=== PATIENT | female | born 1975 | race Caucasian/White ===

== ENCOUNTER → 2017-04-14 | Outpatient (CLI) | payer BC ==
[~2017-04-14] MED LIST: BUPR-79 PO; MTR600X PO; NIFE30TA83 PO; OXYC5TAB PO; SOLI10TA2 PO
[2017-04-20 14:36] LABS: HERPES SIMPLEX CULT SOURCE GENITAL-VULVA; HERPES SIMPLEX VIRUS CULT ISOLATED (NOT ISOLATED)
[2017-04-23 13:46] LABS: HSVTYPE1REFLEX ONLY!DON'T ORDR ISOLATED (NOT ISOLATED); HSVTYPE2REFLEX ONLY!DON'T ORDR NOT ISOLATED (NOT ISOLATED)
== END | disposition home or self-care (01) ==
LOC: C.LABSPEC 17:41
PROVIDERS: ATTEND Physician Assistant
DX: N94.9 Unspecified condition associated with female genital organs and menstrual cycle (principal)

== ENCOUNTER → 2017-12-02 | Outpatient (CLI) | payer BC ==
[2017-12-02 14:16] LABS: BLOOD UREA NITROGEN 10 mg/dl (7-18); CALCIUM 9.4 mg/dl (8.5-10.1); CARBON DIOXIDE 27 mmol/L (21-32); CREATININE 0.79 mg/dl (0.60-1.20); GLUCOSE 88 mg/dl (70-99); POTASSIUM 3.7 mmol/L (3.5-5.1); SODIUM 136 mmol/L (136-145)
[2017-12-02 14:26] LABS: CHOLESTEROL 179 mg/dl (0-200); LDL CHOLESTEROL CALCULATED 104 mg/dl
== END | disposition home or self-care (01) ==
LOC: C.LAB 12:00
PROVIDERS: ATTEND Family Medicine
DX: E66.9 Obesity, unspecified (principal)